=== PATIENT | female | born 1945 | race Caucasian/White ===

== ENCOUNTER 2016-05-18 05:43 | Day surgery (SDC) | payer MEDICARE, BC ==
[2016-05-17 10:21] LABS: HEMATOCRIT 43.1 % (36.0-47.0); HEMOGLOBIN 14.8 g/dL (12.0-15.5); HGB HCT DIFFERENCE 1.3; MEAN CORPUSCULAR HEMOGLOBIN 32.3 pg (27.0-33.4); MEAN CORPUSCULAR HGB CONC 34.2 g/dL (32.0-36.0); MEAN CORPUSCULAR VOLUME 94 fl (80-97); RED BLOOD COUNT 4.57 10^6/uL (3.72-5.28); RED CELL DISTRIBUTION WIDTH 12.4 % (11.5-14.0); WHITE BLOOD COUNT 6.1 10^3/uL (4.0-10.5)
[2016-05-17 10:40] LABS: APPEARANCE,URINE SLIGHTLY-CLOUDY; BILIRUBIN,URINE NEGATIVE (NEGATIVE); GLUCOSE, URINE NEGATIVE (NEGATIVE); KETONES,URINE NEGATIVE (NEGATIVE); LEUKOCYTE ESTERASE,URINE LARGE (NEGATIVE); NITRITE,URINE NEGATIVE (NEGATIVE); PROTEIN,URINE NEGATIVE (NEGATIVE); URINE SPECIFIC GRAVITY 1.018; UROBILINOGEN,URINE NEGATIVE mg/dL (<2.0)
[~2016-05-18 05:43] MED LIST: LACTATED RINGERS 1000 ML IV PRN; LIDOCAINE 0.5% INJ-PF (5 MG/ML) 50 ML SDV SUBCUT PRN
[2016-05-18] MEDS ORDERED: MIDAZOLAM 2 MG/2 ML INJ ONE (08:21)
[2016-05-18] MEDS ORDERED: ONDANSETRON HCL INJ/PF 4 MG/2 ML SDV ONE (08:21)
[2016-05-18] MEDS ORDERED: PROPOFOL INJ 200 MG/20 ML VIAL IV ONE (08:21)
[2016-05-18] MEDS ORDERED: FENTANYL CITRATE INJ/PF 100 MCG/2 ML AMPUL ONE (08:21)
[2016-05-18] MEDS ORDERED: EPHEDRINE SULFATE INJ 50 MG/1 ML AMPULE ONE (08:21)
[2016-05-18] MEDS ORDERED: PROMETHAZINE HCL INJ 25 MG/1 ML VIAL IV PRN (08:40)
[2016-05-18] MEDS ORDERED: DIPHENHYDRAMINE HCL 50 MG/ML VIAL IV PRN (08:40)
[2016-05-18] MEDS ORDERED: MEPERIDINE HCL/PF INJ 25 MG/1 ML DISP.SYRIN IV PRN (08:40)
[2016-05-18] MEDS ORDERED: FENTANYL CITRATE INJ/PF 100 MCG/2 ML AMPUL IV PRN ×3 (08:40)
[2016-05-18 11:40] VITALS: BP 114/71
--- NOTE | 2016-06-20 08:58 | OPERATIVE REPORT E ---
Operative Report NAME: KEESHA HEREDIA : 1945 AGE: 71Y DATE OF SURGERY: 05/18/2016 ROOM: PREOPERATIVE DIAGNOSES: 1. POSTMENOPAUSAL BLEEDING. 2. ENDOMETRIAL POLYP. POSTOPERATIVE DIAGNOSES: 1. POSTMENOPAUSAL BLEEDING. 2. ENDOMETRIAL POLYP. OPERATION: 1. Diagnostic hysteroscopic examination. 2. Dilatation and curettage. 3. Polypectomy. SURGEON: Torito Ibrahim D.O. ANESTHESIA: General endotracheal. COMPLICATIONS: None. TISSUE REMOVED OR ALTERED: Endometrial polyp and endometrial curettings. ESTIMATED BLOOD LOSS: 25 mL. FINDINGS: An approximately 2.5 cm endometrial polyp noted on diagnostic hysteroscopic examination with minimally thickened endometrium. PROCEDURE: The patient was taken to the operating room where she was placed under general endotracheal anesthesia. Once this was done, she was placed in the dorsal lithotomy position with [place] stirrups. She was then prepped and draped in the normal sterile fashion. An open-sided speculum was then placed inside the patient's vagina. The cervix was easily visualized and grasped on the anterior lip with a single-tooth tenaculum. The uterus was then sounded to 7 cm. The cervix was then dilated to 28-Yor[place] using the Hegar dilators. A 30-degree hysteroscope was then connected and found to be operating properly. A diagnostic hysteroscopic examination was performed which revealed a large endometrial polyp with no evidence of foreign bodies or fibroids. The hysteroscope was then removed. Using the polyp forceps, the polypectomy was performed and the polyp was sent off for pathological analysis. Following this, a dilatation and curettage was performed and the endometrial curettings were sent off for pathological analysis. Following this, there was excellent hemostasis. The single-tooth tenaculum was then removed from the patient's cervix. Again, there was excellent hemostasis noted. At this point in time, the procedure was terminated. All sponge, lap, and needle counts were correct x2. The patient tolerated the procedure well. The patient was taken to the recovery room in stable condition. DICTATING PHYSICIAN: Torito Ibrahim DO [id number] PHY#: [id number] ID: [id number] JOB#: [id number] ACCT: [id number] cc:Torito Ibrahim D.O. >
== END 2016-05-18 10:40 | disposition home or self-care (01) ==
LOC: OROUT 05:43
PROVIDERS: ATTEND Obstetrics & Gynecology
PROC: 0UDB8ZX Extraction of Endometrium, Via Natural or Artificial Opening Endoscopic, Diagnostic (ICD-10-PCS; 2016-05-18)
PROC: 0UB98ZX Excision of Uterus, Via Natural or Artificial Opening Endoscopic, Diagnostic (ICD-10-PCS; principal; 2016-05-18 08:00)
DX: N95.0 Postmenopausal bleeding (principal); N84.0 Polyp of corpus uteri; I10 Essential (primary) hypertension; Z88.2 Allergy status to sulfonamides; Z79.899 Other long term (current) drug therapy
CPT/HCPCS: 36415; 85027; 81001; 88305 ×2; 58558; J2250; J3010; J2405; J2704; 952; J3490